=== PATIENT | female | born 1980 | race Caucasian/White ===

== ENCOUNTER 2019-06-24 07:21 | Emergency (ER) | payer BC ==
[2019-06-24 07:33] VITALS: BP 116/63
--- NOTE | 2019-06-24 09:33 | UC ---
Respiratory Complaint HPI - HPI Summary HPI Summary: 1 WEEK OF COUGH, SINUS CONGESTION, POSTNASAL DRAINAGE. HAD FEVER INITIALLY THAT HAS SINCE RESOLVED. FEELS THE COUGH HAS SETTLED INTO HER CHEST AND SHE IS FEELING SOME TIGHTNESS. COUGH IS PERSISTENT AND KEEPING HER UP AT NIGHT. NO SHORTNESS OF BREATH. NO NAUSEA. NO SWEATS. HAS MILD ASTHMA AND IS REQUESTING A REFILL OF HER ALBUTEROL. - History of Current Complaint Chief Complaint: UCRespiratory Stated Complaint: RESP COMPLAINT Time Seen by Provider: 06/24/19 08:00 Hx Obtained From: Patient Hx Last Menstrual Period: IUD in place Onset/Duration: Gradual Onset, Lasting Days, Still Present Timing: Constant Severity Initially: Moderate Severity Currently: Moderate Pain Intensity: 3 Pain Scale Used: 0-10 Numeric Character: Cough: Nonproductive Aggravating Factors: Nothing Alleviating Factors: Nothing Associated Signs And Symptoms: Positive: URI, Nasal Congestion. Negative: Dyspnea, Fever, Wheezing - Allergies/Home Medications Allergies/Adverse Reactions: Allergies Allergy/AdvReac Type Severity Reaction Status Date / Time erythromycin base Allergy Diarrhea Verified 06/24/19 07:34 environmental Allergy Eyes Uncoded 06/24/19 07:34 Itchy/Swollen/Red/Watery Home Medications: Home Medications Ibuprofen [Advil Liqui-Gels] 600 mg PO ONCE PRN 06/24/19 [History Confirmed 09/11] Levonorgestrel (Iud) [Mirena IUD] 1 unit INTRAUTERI ONCE 06/24/19 [History Confirmed 06/24/19] Loratadine [Claritin] 1 tab PO DAILY 06/24/19 [History Confirmed 06/24/19] Pseudoephedrine HCl [Sudafed] 1 tab PO ONCE PRN 06/24/19 [History Confirmed 09/11] Valacyclovir HCl [Valacyclovir] 500 mg PO BID 06/24/19 [History Confirmed ] guaiFENesin [Mucinex] 1 tab PO ONCE PRN 06/24/19 [History Confirmed 06/24/19] PMH/Surg Hx/FS Hx/Imm Hx Respiratory History: Asthma - Surgical History Surgical History: Yes Surgery Procedure, Year, and Place: wisdom teeth. 2009 - Family History Known Family History: Positive: Non-Contributory - Social History Alcohol Use: None Substance Use Type: None Smoking Status (MU): Never Smoked Tobacco Review of Systems All Other Systems Reviewed And Are Negative: Yes Constitutional: Positive: Negative ENT: Positive: Nasal Discharge, Sinus Congestion Respiratory: Positive: Cough Cardiovascular: Positive: Negative Gastrointestinal: Positive: Negative Physical Exam Triage Information Reviewed: Yes Appearance: Well-Appearing, No Pain Distress, Well-Nourished Vital Signs: Initial Vital Signs Temp 97.2 F 06/24/19 07:28 Pulse 106 06/24/19 07:28 Resp 18 06/24/19 07:28 BP 116/63 06/24/19 07:28 Pulse Ox 99 06/24/19 07:28 Vital Signs Reviewed: Yes Eyes: Positive: Conjunctiva Clear ENT: Positive: Hearing grossly normal, Pharynx normal, TMs normal - EACs WITH CERUMEN BILATERALLY Neck: Positive: Supple, Nontender, No Lymphadenopathy Respiratory Exam: Normal Cardiovascular Exam: Normal Abdomen Description: Positive: Soft Musculoskeletal: Positive: No Edema Neurological: Positive: Alert Psychological: Positive: Age Appropriate Behavior Skin: Negative: Rashes Respiratory Course/Dx - Course Course Of Treatment: LIKELY VIRAL ETIOLOGY OF SYMPTOMS. WILL TREAT AIRWAY INFLAMMATION WITH A SHORT COURSE OF PREDNISONE AND WE'LL ALSO REFILL PATIENT'S ALBUTEROL. NO INDICATION FOR ANTIBIOTICS AT PRESENT. ADVISED TO CALL ME AND LEAVE A MESSAGE IF SHE HAS ANY QUESTIONS OR CONCERNS. BOTH EARS CURETTED BY MYSELF TODAY WITH SUCCESSFUL REMOVAL OF CERUMEN. - Differential Dx/Diagnosis Provider Diagnosis: Acute bronchitis Discharge ED - Sign-Out/Discharge Documenting (check all that apply): Patient Departure All imaging exams completed and their final reports reviewed: No Studies - Discharge Plan Condition: Stable Disposition: HOME Prescriptions: Albuterol HFA INHALER* [Ventolin HFA Inhaler*] 2 puff INH Q4H PRN #1 mdi PRN Reason: Shortness Of Breath predniSONE TAB* [Deltasone 20 MG TAB*] 40 mg PO DAILY #10 tab Patient Education Materials: Acute Bronchitis (ED) Forms: *Gen. Provider Communication Referrals: Scott Michaud MD [Primary Care Provider] - If Needed Additional Instructions: YOUR RESPIRATORY SYMPTOMS ARE LIKELY VIRALLY MEDIATED AND SHOULD RESOLVE ON THEIR OWN WITH TIME. NO INDICATION FOR ANTIBIOTICS AT PRESENT. REST, HYDRATE, OTC MEDS NEEDED. WILL TREAT WITH PREDNISONE TO HELP WITH AIRWAY INFLAMMATION AND YOUR ALBUTEROL HAS BEEN REFILLED. SEEK FOLLOW-UP IF YOU ARE NOT IMPROVING OVER THE NEXT 1-2 WEEKS. NOW THAT YOUR EAR CANALS ARE CLEAR OF WAX YOU MAY USE A QTIP TO GENTLY AND CAREFULLY CLEAN YOUR EARS ONCE OR TWICE A WEEK TO KEEP WAX FROM BUILDING UP. DO NOT INSERT THE QTIP ANY FURTHER THAN THE DEPTH OF THE [employer]. - Billing Disposition and Condition Condition: STABLE Disposition: Home
== END 2019-06-24 08:58 | disposition home or self-care (01) ==
LOC: UCEAST 07:21
DX: J20.9 Acute bronchitis, unspecified (principal); J45.909 Unspecified asthma, uncomplicated; J34.89 Other specified disorders of nose and nasal sinuses; Z88.1 Allergy status to other antibiotic agents; Z91.09 Other allergy status, other than to drugs and biological substances
CPT/HCPCS: 99213; G0463